=== PATIENT | female | born 1960 | race African-American/Black ===

== ENCOUNTER 2019-06-22 11:05 | Outpatient (CLI) | payer OTHER, SELFPAY ==
[2019-06-22 12:09] LABS: Alanine Aminotransferase 35 U/L (4-35); Alkaline Phosphatase 96 U/L (38-126); Aspartate Amino Transferase 38 U/L (14-36); Bilirubin,Total 0.3 mg/dL (0.2-1.3); Blood Urea Nitrogen 13 mg/dL (7-17); Calcium 8.9 mg/dL (8.4-10.2); Carbon Dioxide 33 mmol/L (22-30); Chloride 103 mmol/L (98-107); Cholesterol 144 mg/dL (0-200); Estimated Glomerular Filt Rate > 60; Glucose 110 mg/dL (65-105); HDL Direct 47 mg/dL; Sodium 143 mmol/L (137-145); Triglycerides 145 mg/dL (<150)
[2019-06-22 12:20] LABS: LDL Cholesterol Direct 72 mg/dL
[2019-06-22 12:55] LABS: Microalbumin Urine Random < 6.0 mg/L (0-16.7)
== END 2019-06-22 11:06 | disposition home or self-care (01) ==
PROVIDERS: PCP Family Medicine; Visit Provider Family Medicine
DX: Z86.39 Personal history of other endocrine, nutritional and metabolic disease (principal); I10 Essential (primary) hypertension
CPT/HCPCS: 36415; 80053; 80061; 82043

== ENCOUNTER 2019-06-25 08:46 | Outpatient (CLI) | payer OTHER, SELFPAY ==
[2019-06-25 09:37] LABS: Hemoglobin A1C 6.6 % (<5.7)
== END 2019-06-25 08:47 | disposition home or self-care (01) ==
PROVIDERS: PCP Family Medicine; Visit Provider Family Medicine
DX: Z86.39 Personal history of other endocrine, nutritional and metabolic disease (principal)
CPT/HCPCS: 36415; 83036

== ENCOUNTER 2019-10-02 07:36 | Outpatient (CLI) | payer OTHER, SELFPAY ==
[2019-10-02 08:25] LABS: Basophils Percent Auto 0.8 % (0.2-1.2); Eosinophils Absolute Auto 0.1 K/mm3 (0-0.3); Eosinophils Percent Auto 3.1 % (0-4.4); Hematocrit 37.1 % (37.0-47.0); Hemoglobin 11.6 g/dL (12.0-15.0); Immature Granulocyte Absolute 0.02 K/mm3 (0.00-0.031); Immature Granulocyte Percent A 0.5 % (0-0.5); Lymphocytes Absolute Auto 1.31 K/mm3 (0.9-3.2); Lymphocytes Percent Auto 34.2 % (18.3-44.2); Mean Corpuscular HGB Conc 31.3 g/dl (32-36); Mean Corpuscular Hemoglobin 27.2 pg (26-34); Mean Corpuscular Volume 87.1 fl (80-100); Mean Platelet Volume 11.2 fl (7.4-10.4); Monocytes Absolute Auto 0.3 K/mm3 (0.1-0.6); Monocytes Percent Auto 8.1 % (2.6-8.5); Neutrophils Percent Auto 53.3 % (45.5-73.1); Platelet Count Result 206 k/mm3 (150-375); Red Blood Count 4.26 M/mm3 (4.2-5.4); Red Cell Distribution Width 13.4 % (11.5-14.5); White Blood Count 3.8 K/mm3 (4.5-10.0)
[2019-10-02 09:03] LABS: Iron 62 ug/dL (37-170)
[2019-10-02 09:12] LABS: Percent Iron Saturation 18 % (20-50)
== END 2019-10-02 07:37 | disposition home or self-care (01) ==
PROVIDERS: PCP Family Medicine; Visit Provider Nurse Practitioner
DX: D64.9 Anemia, unspecified (principal)
CPT/HCPCS: 36415; 82728; 83540; 83550; 85025

== ENCOUNTER 2019-11-19 06:57 | Outpatient (CLI) | payer OTHER, SELFPAY ==
[2019-11-19 07:12] LABS: Basophils Percent Auto 0.7 % (0.2-1.2); Eosinophils Absolute Auto 0.2 K/mm3 (0-0.3); Eosinophils Percent Auto 4.8 % (0-4.4); Hematocrit 38.1 % (37.0-47.0); Hemoglobin 11.8 g/dL (12.0-15.0); Immature Granulocyte Absolute 0.02 K/mm3 (0.00-0.031); Immature Granulocyte Percent A 0.5 % (0-0.5); Lymphocytes Percent Auto 30.9 % (18.3-44.2); Mean Corpuscular Hemoglobin 27.3 pg (26-34); Mean Platelet Volume 11.2 fl (7.4-10.4); Monocytes Absolute Auto 0.4 K/mm3 (0.1-0.6); Monocytes Percent Auto 8.8 % (2.6-8.5); Neutrophils Absolute Auto 2.3 K/mm3 (1.3-6.7); Neutrophils Percent Auto 54.3 % (45.5-73.1); Platelet Count Result 202 k/mm3 (150-375); Red Blood Count 4.33 M/mm3 (4.2-5.4); Red Cell Distribution Width 13.8 % (11.5-14.5); White Blood Count 4.2 K/mm3 (4.5-10.0)
[2019-11-19 07:26] LABS: Alanine Aminotransferase 28 U/L (4-35); Albumin Level 3.3 g/dL (3.5-5.1); Alkaline Phosphatase 68 U/L (38-126); Anion Gap 2 mmol/L (8-16); Aspartate Amino Transferase 32 U/L (14-36); Bilirubin,Total < 0.1 mg/dL (0.2-1.3); Blood Urea Nitrogen 13 mg/dL (7-17); Calcium 8.8 mg/dL (8.4-10.2); Carbon Dioxide 31 mmol/L (22-30); Chloride 107 mmol/L (98-107); Cholesterol 128 mg/dL (0-200); Estimated Glomerular Filt Rate > 60; Glucose 113 mg/dL (65-105); HDL Direct 36 mg/dL; Potassium 3.9 mmol/L (3.4-5.0); Sodium 140 mmol/L (137-145); Triglycerides 51 mg/dL (<150)
[2019-11-19 07:37] LABS: LDL Cholesterol Direct 78 mg/dL
[2019-11-19 08:01] LABS: Hemoglobin A1C 6.2 % (<5.7)
== END 2019-11-19 06:58 | disposition home or self-care (01) ==
LOC: ANHLAB 07:00
PROVIDERS: PCP Family Medicine
DX: E11.22 Type 2 diabetes mellitus with diabetic chronic kidney disease (principal); I12.9 Hypertensive chronic kidney disease with stage 1 through stage 4 chronic kidney disease, or unspecified chronic kidney disease; Z86.39 Personal history of other endocrine, nutritional and metabolic disease; B35.1 Tinea unguium; E11.69 Type 2 diabetes mellitus with other specified complication; N18.9 Chronic kidney disease, unspecified
CPT/HCPCS: 36415; 80053; 80061; 83036; 85025

== ENCOUNTER 2020-03-04 08:32 | Outpatient (CLI) | payer OTHER, SELFPAY ==
[2020-03-04 09:09] LABS: Potassium 3.8 mmol/L (3.4-5.0)
[2020-03-04 09:17] LABS: Alanine Aminotransferase 21 U/L (4-35); Alkaline Phosphatase 85 U/L (38-126); Anion Gap 6 mmol/L (8-16); Aspartate Amino Transferase 31 U/L (14-36); Bilirubin,Total 0.3 mg/dL (0.2-1.3); Blood Urea Nitrogen 13 mg/dL (7-17); Calcium 9.6 mg/dL (8.4-10.2); Carbon Dioxide 33 mmol/L (22-30); Chloride 104 mmol/L (98-107); Cholesterol 141 mg/dL (0-200); Estimated Glomerular Filt Rate > 60; Glucose 157 mg/dL (65-105); HDL Direct 41 mg/dL; Sodium 143 mmol/L (137-145); Triglycerides 65 mg/dL (<150)
[2020-03-04 09:21] LABS: LDL Cholesterol Direct 74 mg/dL
[2020-03-04 09:37] LABS: Hemoglobin A1C 7.2 % (<5.7)
== END 2020-03-04 08:33 | disposition home or self-care (01) ==
PROVIDERS: PCP Family Medicine; Visit Provider Nurse Practitioner Family
DX: E11.9 Type 2 diabetes mellitus without complications (principal); E78.5 Hyperlipidemia, unspecified; I10 Essential (primary) hypertension
CPT/HCPCS: 36415; 80053; 80061; 83036

== ENCOUNTER → 2021-02-03 18:07 | Outpatient (CLI) | payer OTHER, SELFPAY ==
--- NOTE | ~2021-02-03 | DEXA_ITS ---
Bone Density Report Name: Elsy Hernandez Age: 60 Sex: Female Ethnicity: White Date of : 1960 Indication: postmenopausal; screening for osteoporosis; height loss; Referring Provider: Silvia Dunne Study: Bone densitometry was performed. Exam Date: February 03, 2021 Accession number: [id number] Bone Density: Region BMD T-score Z-score Classification AP Spine (L1-L4) 0.940 -1.0 0.4 Normal Femoral Neck (Left) 0.596 -2.3 -1.0 Osteopenia Total Hip (Left) 0.753 -1.6 -0.6 Osteopenia Femoral Neck (Right) 0.629 -2.0 -0.7 Osteopenia Total Hip (Right) 0.734 -1.7 -0.8 Osteopenia Total Hip Mean 0.744 -1.7 -0.7 Osteopenia World Health Organization criteria for BMD impression classify patients as: Normal (T-score at or above -1.0), Osteopenia (T-score between -1.0 and -2.5), or Osteoporosis (T-score at or below -2.5). 10-year Fracture Risk(1): Major Osteoporotic Fracture 10% Hip Fracture 1.5% Reported Risk Factors: [place] (), Neck BMD=0.596, BMI=26.7 (1) FRAX(R) Version 3.08. Fracture probability calculated for an untreated patient. Fracture probability may be lower if the patient has received treatment. Clinical Information Provided by Patient: Has used the following medications: Calcium, MTV Patient maximum height was 71.0 Menopause Age: 56 Drinks caffeinated beverages Onset of menses at age 16 Number of children 1 Impression: The patient has low bone mass, based on the Left Femoral Neck T-score. The patient has an estimated ten-year risk of hip fracture of 1.5% and an estimated ten-year risk of major fracture of 10%, based on the WHO FRAX algorithm. Discussion: BONE DENSITY IS LOW AT ONE OR MORE SKELETAL SITES. This patient's lowest T-score is low at one or more skeletal sites. It meets the World Health Organization's (WHO) criteria for ?low bone mass? (T-score between -1.0 and -2.5). The patient's 10-year risk of fracture as calculated by FRAX is less than the threshold where pharmacological therapy is recommended by the National Osteoporosis Foundation (NOF). However, all treatment decisions require clinical judgment and consideration of individual patient factors, including patient preferences, comorbidities, previous drug use, risk factors not captured in the FRAX model (e.g., frailty, falls, vitamin D deficiency, increased bone turnover, interval significant decline in bone density) and possible under or overestimation of fracture risk by FRAX. The patient should follow a healthful lifestyle (good nutrition with adequate calcium and vitamin D, and appropriate weight-bearing exercise). Follow-Up: Consider repeating this study in 2 to 3 years to reassess this patient's status, or sooner if there is some new clinical indication. Reported by: IVIS on 02/03/2021 7:02:00 PM. __
--- NOTE | ~2021-02-03 | MM_ITS ---
EXAMINATION: MM screening nicki BI w wily HISTORY: Screening TECHNIQUE: Craniocaudal and mediolateral oblique 3-D tomosynthesis images were obtained and synthetic 2-D images were generated. CAD analysis was submitted and interpreted. COMPARISON: 06/05/2017 BREAST PARENCHYMAL COMPOSITION: There are scattered areas of fibroglandular density. FINDINGS: There is no evidence of suspicious mass, calcification, or architectural distortion to sugg est malignancy in either breast. There has been no suspicious interval change. IMPRESSION: 1. No mammographic evidence of malignancy. 2. Recommend routine screening mammography in one year. BI-RADS Category 1: Negative Reviewed, dictated and finalized at location A.
== END ==
PROVIDERS: PCP Family Medicine; Visit Provider Family Medicine
DX: Z12.31 Encounter for screening mammogram for malignant neoplasm of breast (principal); Z78.0 Asymptomatic menopausal state; M85.89 Other specified disorders of bone density and structure, multiple sites
CPT/HCPCS: 77063; 77067; 77080

== ENCOUNTER 2021-12-27 10:10 | Outpatient (CLI) | payer OTHER, SELFPAY ==
[2021-12-27 20:05] LABS: Basophils Percent Auto 0.6 % (0.2-1.2); Eosinophils Absolute Auto 0.2 K/mm3 (0-0.3); Eosinophils Percent Auto 4.4 % (0-4.4); Hematocrit 39.7 % (37.0-47.0); Hemoglobin 11.8 g/dL (12.0-15.0); Immature Granulocyte Absolute 0.01 K/mm3 (0.00-0.031); Immature Granulocyte Percent A 0.2 % (0-0.5); Lymphocytes Absolute Auto 1.52 K/mm3 (0.9-3.2); Lymphocytes Percent Auto 28.1 % (18.3-44.2); Mean Corpuscular HGB Conc 29.7 g/dl (32-36); Mean Corpuscular Hemoglobin 26.5 pg (26-34); Mean Platelet Volume 11.8 fl (7.4-10.4); Monocytes Absolute Auto 0.3 K/mm3 (0.1-0.6); Monocytes Percent Auto 6.3 % (2.6-8.5); Neutrophils Absolute Auto 3.3 K/mm3 (1.3-6.7); Neutrophils Percent Auto 60.4 % (45.5-73.1); Platelet Count Result 255 k/mm3 (150-375); Red Blood Count 4.46 M/mm3 (4.2-5.4); Red Cell Distribution Width 13.7 % (11.5-14.5); White Blood Count 5.4 K/mm3 (4.5-10.0)
[2021-12-27 20:20] LABS: Alanine Aminotransferase 27 U/L (6-35); Albumin Level 4.1 g/dL (3.5-5.1); Alkaline Phosphatase 99 U/L (38-126); Anion Gap 10 mmol/L (8-16); Aspartate Amino Transferase 79 U/L (14-36); Bilirubin,Total 0.5 mg/dL (0.2-1.3); Blood Urea Nitrogen 13 mg/dL (7-17); Calcium 9.9 mg/dL (8.4-10.2); Carbon Dioxide 30 mmol/L (22-30); Chloride 102 mmol/L (98-107); Cholesterol 150 mg/dL (0-200); Estimated Glomerular Filt Rate > 60; Glucose 156 mg/dL (65-110); HDL Direct 40 mg/dL; Sodium 142 mmol/L (137-145); Triglycerides 86 mg/dL (<150)
[2021-12-27 20:30] LABS: LDL Cholesterol Direct 84 mg/dL
[2021-12-27 20:36] LABS: Platelet Estimate Adequate (Adequate)
[2021-12-27 20:37] LABS: Hypochromasia 1+ (NORMAL)
[2021-12-27 20:44] LABS: Vitamin D 25 Hydroxy 46.7 ng/mL
[2021-12-27 20:45] LABS: Hemoglobin A1C 8.4 % (<5.7)
[2021-12-27 23:18] LABS: Creatinine Urine 84.9 mg/dL
[2021-12-28 01:03] LABS: MALB Creatinine Ratio < 7.1 mg/g (0-30); Microalbumin Urine Random < 6.0 mg/L (0-16.7)
== END 2021-12-27 10:11 | disposition home or self-care (01) ==
LOC: ANHGOSHLAB 10:14
PROVIDERS: PCP Family Medicine; Visit Provider Family Medicine
DX: E53.8 Deficiency of other specified B group vitamins (principal); E78.5 Hyperlipidemia, unspecified; I10 Essential (primary) hypertension; Z51.81 Encounter for therapeutic drug level monitoring; Z79.899 Other long term (current) drug therapy; E55.9 Vitamin D deficiency, unspecified; E11.9 Type 2 diabetes mellitus without complications; Z00.00 Encounter for general adult medical examination without abnormal findings
CPT/HCPCS: 36415; 80053; 80061; 82043; 82306; 82607; 83036; 84443; 85025

== ENCOUNTER → 2022-05-01 13:56 | Outpatient (CLI) | payer OTHER, SELFPAY ==
--- NOTE | ~2022-05-01 | MM_ITS ---
EXAMINATION: MM screening nicki BI w wily HISTORY: Screening mammogram TECHNIQUE: Craniocaudal and mediolateral oblique 3-D tomosynthesis images were obtained and synthetic 2-D images were generated. CAD analysis was submitted and interpreted. COMPARISON: 02/03/2021, 06/05/2017 bilateral screening mammogram examinations BREAST PARENCHYMAL COMPOSITION: The breasts are almost entirely fatty. FINDINGS: There is no evidence of suspicious mass, calcification, or architectural distortion to sugg est malignancy in either breast. There has been no suspicious interval change. IMPRESSION: 1. No mammographic evidence of malignancy. 2. Recommend routine screening mammography in one year. BI-RADS Category 1: Negative Reviewed, dictated and finalized at location A. [employer]
== END ==
PROVIDERS: PCP Family Medicine; Visit Provider Family Medicine
DX: Z12.31 Encounter for screening mammogram for malignant neoplasm of breast (principal)
CPT/HCPCS: 77063; 77067

== ENCOUNTER 2022-07-02 09:51 | Outpatient (CLI) | payer OTHER, SELFPAY ==
[2022-07-02 19:29] LABS: Alanine Aminotransferase 34 U/L (6-35); Albumin Level 4.4 g/dL (3.5-5.1); Alkaline Phosphatase 101 U/L (38-126); Anion Gap 9 mmol/L (8-16); Aspartate Amino Transferase 38 U/L (14-36); Bilirubin,Total 0.5 mg/dL (0.2-1.3); Blood Urea Nitrogen 14 mg/dL (7-17); Calcium 9.7 mg/dL (8.4-10.2); Carbon Dioxide 31 mmol/L (22-30); Chloride 101 mmol/L (98-107); Cholesterol 161 mg/dL (0-200); Estimated Glomerular Filt Rate > 60; Glucose 136 mg/dL (65-110); HDL Direct 37 mg/dL; Potassium 3.8 mmol/L (3.4-5.0); Sodium 141 mmol/L (137-145); Triglycerides 88 mg/dL (<150)
[2022-07-02 19:38] LABS: LDL Cholesterol Direct 93 mg/dL
[2022-07-02 19:46] LABS: Hemoglobin A1C 7.9 % (<5.7)
[2022-07-02 21:05] LABS: Basophils Absolute Auto 0.1 K/mm3 (0.0-0.1); Basophils Percent Auto 1.1 % (0.2-1.2); Eosinophils Absolute Auto 0.2 K/mm3 (0-0.3); Eosinophils Percent Auto 2.8 % (0-4.4); Hematocrit 41.9 % (37.0-47.0); Hemoglobin 12.9 g/dL (12.0-15.0); Immature Granulocyte Absolute 0.01 K/mm3 (0.00-0.031); Immature Granulocyte Percent A 0.2 % (0-0.5); Lymphocytes Absolute Auto 1.66 K/mm3 (0.9-3.2); Lymphocytes Percent Auto 30.9 % (18.3-44.2); Mean Corpuscular HGB Conc 30.8 g/dl (32-36); Mean Corpuscular Hemoglobin 27.3 pg (26-34); Mean Corpuscular Volume 88.6 fl (80-100); Mean Platelet Volume 11.7 fl (7.4-10.4); Monocytes Absolute Auto 0.3 K/mm3 (0.1-0.6); Monocytes Percent Auto 6.1 % (2.6-8.5); Neutrophils Absolute Auto 3.2 K/mm3 (1.3-6.7); Neutrophils Percent Auto 58.9 % (45.5-73.1); Platelet Count Result 288 k/mm3 (150-375); Red Blood Count 4.73 M/mm3 (4.2-5.4); Red Cell Distribution Width 13.4 % (11.5-14.5); White Blood Count 5.4 K/mm3 (4.5-10.0)
== END 2022-07-02 09:52 | disposition home or self-care (01) ==
LOC: ANHGOSHLAB 09:52
PROVIDERS: PCP Family Medicine; Visit Provider Nurse Practitioner Family
DX: I10 Essential (primary) hypertension (principal); E11.9 Type 2 diabetes mellitus without complications; E78.5 Hyperlipidemia, unspecified; L65.9 Nonscarring hair loss, unspecified
CPT/HCPCS: 36415; 80053; 80061; 83036; 84443; 85025

== ENCOUNTER 2023-01-07 10:29 | Outpatient (CLI) | payer OTHER, SELFPAY ==
[2023-01-07 13:12] LABS: Basophils Absolute Auto 0.1 K/mm3 (0.0-0.1); Eosinophils Absolute Auto 0.2 K/mm3 (0-0.3); Eosinophils Percent Auto 4.8 % (0-4.4); Hematocrit 39.7 % (37.0-47.0); Hemoglobin 12.1 g/dL (12.0-15.0); Immature Granulocyte Absolute 0.01 K/mm3 (0.00-0.031); Immature Granulocyte Percent A 0.2 % (0-0.5); Lymphocytes Absolute Auto 1.45 K/mm3 (0.9-3.2); Mean Corpuscular HGB Conc 30.5 g/dl (32-36); Mean Corpuscular Hemoglobin 27.1 pg (26-34); Mean Platelet Volume 11.6 fl (7.4-10.4); Monocytes Absolute Auto 0.3 K/mm3 (0.1-0.6); Monocytes Percent Auto 6.2 % (2.6-8.5); Neutrophils Absolute Auto 2.8 K/mm3 (1.3-6.7); Neutrophils Percent Auto 57.8 % (45.5-73.1); Platelet Count Result 246 k/mm3 (150-375); Red Blood Count 4.46 M/mm3 (4.2-5.4); White Blood Count 4.8 K/mm3 (4.5-10.0)
[2023-01-07 13:29] LABS: Creatinine Urine 66.7 mg/dL
[2023-01-07 13:41] LABS: Alanine Aminotransferase 30 U/L (6-35); Alkaline Phosphatase 101 U/L (38-126); Anion Gap 5 mmol/L (8-16); Aspartate Amino Transferase 47 U/L (14-36); Bilirubin,Total 0.6 mg/dL (0.2-1.3); Blood Urea Nitrogen 10 mg/dL (7-17); Calcium 9.5 mg/dL (8.4-10.2); Carbon Dioxide 32 mmol/L (22-30); Chloride 103 mmol/L (98-107); Cholesterol 156 mg/dL (0-200); Estimated Glomerular Filt Rate > 60; Glucose 96 mg/dL (65-110); HDL Direct 41 mg/dL; Potassium 3.7 mmol/L (3.4-5.0); Sodium 140 mmol/L (137-145); Triglycerides 66 mg/dL (<150)
[2023-01-07 13:55] LABS: LDL Cholesterol Direct 86 mg/dL
[2023-01-07 14:16] LABS: Thyroid Stimulating Hormone Reflex 0.858 uIU/mL (0.465-4.68)
[2023-01-07 14:36] LABS: MALB Creatinine Ratio < 9.0 mg/g (0-30); Microalbumin Urine Random < 6.0 mg/L (0-16.7)
[2023-01-07 15:18] LABS: Hemoglobin A1C 8.2 % (<5.7)
== END 2023-01-07 10:30 | disposition home or self-care (01) ==
PROVIDERS: PCP Family Medicine; Visit Provider Family Medicine
DX: Z00.00 Encounter for general adult medical examination without abnormal findings (principal); I10 Essential (primary) hypertension; E78.5 Hyperlipidemia, unspecified; E55.9 Vitamin D deficiency, unspecified; E11.8 Type 2 diabetes mellitus with unspecified complications; E53.8 Deficiency of other specified B group vitamins
CPT/HCPCS: 36415; 80053; 80061; 82043; 82306; 82607; 83036; 84443; 85025

== ENCOUNTER 2023-07-22 12:37 | Outpatient (CLI) | payer OTHER, SELFPAY ==
--- NOTE | ~2023-07-22 | DEXA_ITS ---
Bone Density Report Name: GRACIELA NICOLAS Age: 62 Sex: Female Ethnicity: White Date of : 1960 Indication: osteopenia; postmenopausal Referring Provider: NUVIA SALAS Study: Bone densitometry was performed. Exam Date: July 22, 2023 Accession number: [id number] Bone Density: Region BMD T-score Z-score Classification AP Spine (L1-L4) 0.948 -0.9 0.6 Normal Femoral Neck (Left) 0.600 -2.2 -0.9 Osteopenia Total Hip (Left) 0.739 -1.7 -0.6 Osteopenia Femoral Neck (Right) 0.640 -1.9 -0.5 Osteopenia Total Hip (Right) 0.713 -1.9 -0.8 Osteopenia Total Hip Mean 0.726 -1.8 -0.7 Osteopenia World Health Organization criteria for BMD impression classify patients as: Normal (T-score at or above -1.0), Osteopenia (T-score between -1.0 and -2.5), or Osteoporosis (T-score at or below -2.5). 10-year Fracture Risk(1): Major Osteoporotic Fracture 11% Hip Fracture 1.6% Reported Risk Factors: [place] (), Neck BMD=0.600, BMI=25.6 (1) FRAX(R) Version 3.08. Fracture probability calculated for an untreated patient. Fracture probability may be lower if the patient has received treatment. Previous Exams: Region Exam Age BMD T-score BMD Change BMD Change Date g/cm2 vs Baseline vs Previous AP Spine(L1-L4) 07/22/2023 62 0.948 -0.9 0.008 0.033 07/22/2023 62 0.915 -1.2 -0.025 -0.025 02/03/2021 60 0.940 -1.0 Total Hip(Left) 07/22/2023 62 0.739 -1.7 -0.014 -0.014 02/03/2021 60 0.753 -1.6 Total Hip(Right) 07/22/2023 62 0.713 -1.9 -0.021 -0.021 02/03/2021 60 0.734 -1.7 *Denotes significance at 95% confidence level, LSC for AP Spine = 0.022 g/cm2, LSC for Total Hip = 0.027 g/cm2 Clinical Information Provided by Patient: Has used the following medications: Vitamin D, MTV Patient maximum height was 71.0 Menopause Age: 56 Drinks caffeinated beverages Onset of menses at age 16 Number of children 1 Impression: The patient has low bone mass, based on the Left Femoral Neck T-score. The patient has an estimated ten-year risk of hip fracture of 1.6% and an estimated ten-year risk of major fracture of 11%, based on the WHO FRAX algorithm. No significant bone loss was observed. Discussion: BONE DENSITY IS LOW AT ONE OR MORE SKELETAL SITES. This patient's lowest T-score is low at one or more skeletal sites. It meets the World Health Organization's (WHO) criteria f
--- NOTE | ~2023-07-22 | MM_ITS ---
EXAMINATION: MM screening nicki BI w wily HISTORY: Screening TECHNIQUE: Craniocaudal and mediolateral oblique 3-D tomosynthesis images were obtained and synthetic 2-D images were generated. CAD analysis was submitted and interpreted. COMPARISON: Comparison to multiple prior studies sequentially, with oldest reviewed study dated 06/05. BREAST PARENCHYMAL COMPOSITION: There are scattered areas of fibroglandular density. FINDINGS: There is no evidence of suspicious mass, calcification, or architectural distortion to sugg est malignancy in either breast. There has been no suspicious interval change. IMPRESSION: 1. No mammographic evidence of malignancy. 2. Recommend routine screening mammography in one year. BI-RADS Category 1: Negative Reviewed, dictated and finalized at location B.
== END 2023-07-22 12:38 ==
LOC: MICIMG 12:37
PROVIDERS: PCP Family Medicine; Visit Provider Internal Medicine Endocrinology, Diabetes & Metabolism
DX: Z12.31 Encounter for screening mammogram for malignant neoplasm of breast (principal); Z78.0 Asymptomatic menopausal state; M85.89 Other specified disorders of bone density and structure, multiple sites
CPT/HCPCS: 77063; 77067; 77080

== ENCOUNTER 2024-01-14 09:52 | Outpatient (CLI) | payer OTHER, SELFPAY ==
[2024-01-14 14:32] LABS: Eosinophils Absolute Auto 0.2 K/mm3 (0-0.3); Eosinophils Percent Auto 5.5 % (0-4.4); Hematocrit 42.6 % (37.0-47.0); Hemoglobin 12.7 g/dL (12.0-15.0); Immature Granulocyte Absolute 0.01 K/mm3 (0.00-0.031); Immature Granulocyte Percent A 0.2 % (0-0.5); Lymphocytes Absolute Auto 1.04 K/mm3 (0.9-3.2); Lymphocytes Percent Auto 24.9 % (18.3-44.2); Mean Corpuscular HGB Conc 29.8 g/dl (32-36); Mean Corpuscular Hemoglobin 26.1 pg (26-34); Mean Corpuscular Volume 87.7 fl (80-100); Mean Platelet Volume 12.1 fl (7.4-10.4); Monocytes Absolute Auto 0.4 K/mm3 (0.1-0.6); Monocytes Percent Auto 8.9 % (2.6-8.5); Neutrophils Absolute Auto 2.5 K/mm3 (1.3-6.7); Neutrophils Percent Auto 59.5 % (45.5-73.1); Platelet Count Result 229 k/mm3 (150-375); Red Blood Count 4.86 M/mm3 (4.2-5.4); Red Cell Distribution Width 13.9 % (11.5-14.5); White Blood Count 4.2 K/mm3 (4.5-10.0)
[2024-01-14 14:41] LABS: Creatinine Urine 66.6 mg/dL
[2024-01-14 14:43] LABS: MALB Creatinine Ratio < 9.0 mg/g (0-30); Microalbumin Urine Random < 6.0 mg/L (0-16.7)
[2024-01-14 14:56] LABS: Alanine Aminotransferase 35 U/L (6-35); Albumin Level 4.4 g/dL (3.5-5.1); Alkaline Phosphatase 81 U/L (38-126); Anion Gap 8 mmol/L (4-12); Aspartate Amino Transferase 58 U/L (14-36); Bilirubin,Total 0.5 mg/dL (0.2-1.3); Blood Urea Nitrogen 19 mg/dL (7-17); Calcium 9.8 mg/dL (8.4-10.2); Carbon Dioxide 30 mmol/L (22-30); Chloride 103 mmol/L (98-107); Cholesterol 157 mg/dL (0-200); Estimated Glomerular Filt Rate > 60; Glucose 75 mg/dL (65-110); HDL Direct 43 mg/dL; Potassium 3.8 mmol/L (3.4-5.0); Sodium 141 mmol/L (137-145); Triglycerides 60 mg/dL (<150)
[2024-01-14 15:07] LABS: LDL Cholesterol Direct 78 mg/dL
[2024-01-14 15:11] LABS: Hypochromasia 1+; Platelet Estimate Adequate (Adequate); Schistocytes None Seen
[2024-01-14 16:37] LABS: Vitamin D 25 Hydroxy 47.4 ng/mL
== END 2024-01-14 09:53 | disposition home or self-care (01) ==
PROVIDERS: PCP Family Medicine; Visit Provider Family Medicine
DX: Z00.00 Encounter for general adult medical examination without abnormal findings (principal); E11.65 Type 2 diabetes mellitus with hyperglycemia; E78.5 Hyperlipidemia, unspecified; M85.80 Other specified disorders of bone density and structure, unspecified site; R79.89 Other specified abnormal findings of blood chemistry; E11.8 Type 2 diabetes mellitus with unspecified complications; Z79.899 Other long term (current) drug therapy
CPT/HCPCS: 36415; 80053; 80061; 82043; 82306; 82607; 84443; 85025

== ENCOUNTER 2024-02-24 00:02 | Day surgery (SDC) | payer OTHER, SELFPAY ==
[2024-02-13 08:39] VITALS: BMI 26.1
[2024-02-24 09:16] VITALS: BP 148/72; PULSE 63; RESP 18; TEMP 36.4; O2SAT 100
[2024-02-24] MEDS: LACTATED RINGERS 1,000 ML 150 ML IV CONT (09:27)
[2024-02-24 09:28] LABS: Glucose Point of Care 120 mg/dl (65-105)
--- NOTE | 2024-02-24 09:31 | WPDANESEPPF ---
Anes - Initial Pre Proc Eval Procedure: Operation Date: 02/24/24 10:30 Proposed Procedures p Colonoscopy - Song Beard MD Date/Time: 02/24/24 09:31 Surgeon: Song Beard MD Pre Op Diagnosis: family hx of cancer, family hx of colon polyps Patient Data Age: 63 Gender: F Height: 1.8 m Weight: 83 kg Last Vital Signs Temp 36.4 C 02/24/24 09:16 Pulse 63 02/24/24 09:16 Resp 18 02/24/24 09:16 BP 148/72 H 02/24/24 09:16 Pulse Ox 100 02/24/24 09:16 O2 Del Method Room Air 02/24/24 09:16 Allergies Allergy/AdvReac Type Severity Reaction Status Date / Time latex Allergy Intermediate HIVES Verified 02/24/24 09:14 Home Medications Medication Instructions Recorded Confirmed Type blood-glucose meter (Blood Glucose #1 ea 03/11/19 02/24/24 Rx Monitoring kit) ibuprofen 800 mg tablet 800 mg PO DAILY PRN pain #30 tabs 05/20/19 02/24/24 Rx aspirin 81 mg chewable tablet 81 mg PO DAILY 10/06/19 02/24/24 History (Jocelyn Chewable Low Dose Aspirin) cetirizine 10 mg capsule (Wal-Zyr 10 mg PO DAILY PRN ALLERGIES 12/27/21 02/24/24 History (cetirizine)) cranberry 400 mg capsule 400 mg PO DAILY 12/27/21 02/24/24 History fluticasone propionate 50 2 spray intranasal DAILY PRN 11/05/22 02/24/24 Rx mcg/actuation nasal allergy symptoms #9 mL spray,suspension (Flonase Allergy Relief) lancets 23 gauge (Comfort EZ #100 ea 01/21/23 02/24/24 Rx Lancets) blood sugar diagnostic (OneTouch See Rx Instructions .Route 07/11/23 02/24/24 Rx Verio test strips) .COMPLEX #200 strips glucose 4 gram chewable tablet 16 g PO Q15M PRN hypoglycemia #90 07/11/23 02/24/24 Rx (Dex4 Glucose) tabs lancets 33 gauge (OneTouch Delica #200 ea 07/11/23 02/24/24 Rx Plus Lancet) azelastine 137 mcg (0.1 %) nasal 1 spray intranasal Q12H #30 mL 07/22/23 02/24/24 Rx spray efinaconazole 10 % topical 1 applic topical QHS #4 mL 08/23/23 02/24/24 Rx solution with applicator (Jublia) dulaglutide 3 mg/0.5 mL 3 mg (0.5 mL) subcut WEEKLY 90 12/18/23 02/24/24 Rx subcutaneous pen injector days #6.5 mL atorvastatin 10 mg tablet 10 mg PO QHS #90 tabs 01/06/24 02/24/24 Rx calcium ER 600 mg (as carb,cit)-D3 1 tablet PO BID 3 months #180 tabs 01/08/24 02/24/24 Rx 12.5 mcg (500 unit) tablet, ext.rel (Citracal-D3 Slow Release) glipizide 10 mg tablet, extended 10 mg PO BID 3 months #180 tabs 01/08/24 02/24/24 Rx release 24 hr losartan 50 mg tablet 50 mg PO DAILY 01/14/24 02/24/24 History Laboratory Tests 02/24/24 09:24 POC Capillary Glucose 120 H mg/dl (65-105) Patient hx anesthesia problems: none Family hx anesthesia problems: none Results Review: All pre-operative results and documents have been reviewed as part of the pre-operative evaluation. FOR[facility]LY [facility] Past Medical History Medical History Environmental allergies Essential (primary) hypertension (~11/2018) External hemorrhoid Family history of colon cancer in mother Family hx of colon cancer Mother and 1st cousin Hyperlipidemia LDL goal <100 Osteopenia Surgical History Surgical History S/P tendon repair (~1979) left wrist Family History Family History Mother Diabetes mellitus, Onset Age: 65 Family history of obesity Hypertension, Onset Age: 65 Carcinoma of colon, Onset Age: 64 @ 65 y/o Grandparent Diabetes mellitus Sibling Diabetes mellitus Family history of cardiovascular disease Cerebrovascular accident Family history of chronic obstructive pulmonary disease Family history of lupus erythematosus Family history of obesity Acute myocardial infarction Hypertension Other Heart disease Hypertension Family history of obesity Diabetes mellitus Cerebrovascular accident Social History Social History Smoking status: Never smoker Alcohol intake: never Substance use: never Substance use type: does not use Lack of Transportation: No Lack of Food: Never True Current Housing: I Have Housing Concerned About Future Housing: No Difficulty Paying Gas/Electric Bills: No Difficulty Paying for Meds: No Currently Unemployed: No Education: Associate Degree Difficulty w/ Childcare or Family Care: No Living arrangements: alone Occupation/Education: occupation Gender identity (if verbalized by the patient): Female Sexual Orientation (if Verbalized by the Patient): Straight or Heterosexual Spiritual care concerns: No Agree to blood products: Yes Anes - Eval Final PreProcedure Day of Procedure 02/24/24 09:31 Patient weight: overweight Heart: regular rate and rhythm Lungs: clear to auscultation Airway: Mallampati scale class II Neurological: alert and oriented Last oral intake: >/= 8 hours ASA classification: III Emergent: no Anesthetic plan: proceed Anesthesia type and monitoring: general GIVS and standard monitoring Results Review: All pre-operative results and documents have been reviewed as part of the pre-operative evaluation. Informed Consent: The patient's anesthetic plan and its attendant risks and benefits were discussed with the patient/family/POA. Questions were solicited and answers provided to the satisfaction of the patient/family/POA.
--- NOTE | 2024-02-24 10:18 | PM.IMHP ---
H&P: HPI History of Present Illness Date/Time: 02/24/24 10:18 Chief Complaint: family history of colorectal cancer. Narrative: This patient has family history of colorectal cancer. Her mother of colorectal cancer. Her last colonoscopy about 5 years ago. Review of Systems Review of Systems: All systems reviewed & are unremarkable except as noted in HPI and below PMFSH Past Medical History Medical History (Updated 02/24/24 @ 10:20 by Song Beard MD) Environmental allergies Essential (primary) hypertension (~11/2018) External hemorrhoid Family history of colon cancer in mother Family hx of colon cancer Mother and 1st cousin Hyperlipidemia LDL goal <100 Osteopenia Surgical History Surgical History S/P tendon repair (~1979) left wrist Family History Family History Mother Diabetes mellitus, Onset Age: 65 Family history of obesity Hypertension, Onset Age: 65 Carcinoma of colon, Onset Age: 64 @ 65 y/o Grandparent Diabetes mellitus Sibling Diabetes mellitus Family history of cardiovascular disease Cerebrovascular accident Family history of chronic obstructive pulmonary disease Family history of lupus erythematosus Family history of obesity Acute myocardial infarction Hypertension Other Heart disease Hypertension Family history of obesity Diabetes mellitus Cerebrovascular accident Social History Social History Smoking status: Never smoker Alcohol intake: never Substance use: never Substance use type: does not use Lack of Transportation: No Lack of Food: Never True Current Housing: I Have Housing Concerned About Future Housing: No Difficulty Paying Gas/Electric Bills: No Difficulty Paying for Meds: No Currently Unemployed: No Education: Associate Degree Difficulty w/ Childcare or Family Care: No Living arrangements: alone Occupation/Education: occupation Gender identity (if verbalized by the patient): Female Sexual Orientation (if Verbalized by the Patient): Straight or Heterosexual Spiritual care concerns: No Agree to blood products: Yes Meds Home Medications and Allergies Home Medications Medication Instructions Recorded Confirmed Type blood-glucose meter (Blood Glucose #1 ea 03/11/19 02/24/24 Rx Monitoring kit) ibuprofen 800 mg tablet 800 mg PO DAILY PRN pain #30 tabs 05/20/19 02/24/24 Rx aspirin 81 mg chewable tablet 81 mg PO DAILY 10/06/19 02/24/24 History (Jocelyn Chewable Low Dose Aspirin) cetirizine 10 mg capsule (Wal-Zyr 10 mg PO DAILY PRN ALLERGIES 12/27/21 02/24/24 History (cetirizine)) cranberry 400 mg capsule 400 mg PO DAILY 12/27/21 02/24/24 History fluticasone propionate 50 2 spray intranasal DAILY PRN 11/05/22 02/24/24 Rx mcg/actuation nasal allergy symptoms #9 mL spray,suspension (Flonase Allergy Relief) lancets 23 gauge (Comfort EZ #100 ea 01/21/23 02/24/24 Rx Lancets) blood sugar diagnostic (OneTouch See Rx Instructions .Route 07/11/23 02/24/24 Rx Verio test strips) .COMPLEX #200 strips glucose 4 gram chewable tablet 16 g PO Q15M PRN hypoglycemia #90 07/11/23 02/24/24 Rx (Dex4 Glucose) tabs lancets 33 gauge (OneTouch Delica #200 ea 07/11/23 02/24/24 Rx Plus Lancet) azelastine 137 mcg (0.1 %) nasal 1 spray intranasal Q12H #30 mL 07/22/23 02/24/24 Rx spray efinaconazole 10 % topical 1 applic topical QHS #4 mL 08/23/23 02/24/24 Rx solution with applicator (Jublia) dulaglutide 3 mg/0.5 mL 3 mg (0.5 mL) subcut WEEKLY 90 12/18/23 02/24/24 Rx subcutaneous pen injector days #6.5 mL atorvastatin 10 mg tablet 10 mg PO QHS #90 tabs 01/06/24 02/24/24 Rx calcium ER 600 mg (as carb,cit)-D3 1 tablet PO BID 3 months #180 tabs 01/08/24 02/24/24 Rx 12.5 mcg (500 unit) tablet, ext.rel (Citracal-D3 Slow Release) glipizide 10 mg tablet, extended 10 mg PO BID 3 months #180 tabs 01/08/24 02/24/24 Rx release 24 hr losartan 50 mg tablet 50 mg PO DAILY 01/14/24 02/24/24 History Allergies Allergy/AdvReac Type Severity Reaction Status Date / Time latex Allergy Intermediate HIVES Verified 02/24/24 09:14 Vital Signs Vital Signs - 24 hr 02/24/24 09:16 Temperature 97.6 F Pulse Rate 63 Respiratory Rate 18 Blood Pressure 148/72 H Pulse Oximetry 100 Oxygen Delivery Room Air Exam Const: General: cooperative and healthy appearing Resp: Effort & Inspection: normal respiratory effort and able to speak in complete sentences Auscultation: clear to auscultation bilaterally Cardio: Rate: regular rate Rhythm: regular rhythm GI: Inspection: normal to inspection GI Palp: No No hepatosplenomegaly present Auscultation: normal bowel sounds Rectal Exam: deferred Skin: General skin exam: normal color Psych: Appearance: grossly normal Mental Status: mental status grossly normal Assessment and Plan Assessment and plan (1) Family hx of colon cancer: Code(s): Z80.0 - Family history of malignant neoplasm of digestive organs Status: Acute Assessment and Plan: The patient is deemed a good candidate for the procedure. Consent signed. Will proceed.
[2024-02-24 10:55] VITALS: BP 108/70; PULSE 60; RESP 18; O2SAT 100
[2024-02-24 11:05] VITALS: BP 114/70; PULSE 60; RESP 20; O2SAT 100
[2024-02-24 11:15] VITALS: BP 161/84; PULSE 55; RESP 16; O2SAT 100
[2024-02-24 11:18] LABS: Glucose Point of Care 99 mg/dl (65-105)
== END 2024-02-24 11:30 | disposition home or self-care (01) ==
PROVIDERS: PCP Family Medicine; Visit Provider Internal Medicine Gastroenterology
PROC: 0DJD8ZZ Inspection of Lower Intestinal Tract, Via Natural or Artificial Opening Endoscopic (ICD-10-PCS; CPT 45378; principal; 2024-02-24 10:30)
DX: Z12.11 Encounter for screening for malignant neoplasm of colon (principal); D12.5 Benign neoplasm of sigmoid colon; D12.0 Benign neoplasm of cecum; K64.1 Second degree hemorrhoids; I10 Essential (primary) hypertension; E78.5 Hyperlipidemia, unspecified; M85.88 Other specified disorders of bone density and structure, other site; Z79.1 Long term (current) use of non-steroidal anti-inflammatories (NSAID); Z79.82 Long term (current) use of aspirin; Z79.85 Long-term (current) use of injectable non-insulin antidiabetic drugs; Z79.84 Long term (current) use of oral hypoglycemic drugs; Z98.890 Other specified postprocedural states; Z80.0 Family history of malignant neoplasm of digestive organs; Z82.49 Family history of ischemic heart disease and other diseases of the circulatory system
CPT/HCPCS: 45385; 82948; 88305; J2704; J7120

== ENCOUNTER 2024-07-16 10:20 | Outpatient (CLI) | payer OTHER, SELFPAY ==
--- OUTSIDE RECORDS SUMMARY | 2024-07-16 11:04 | XMS_ITS | Continuity of Care Document ---
Author Organization [facility] Address [address] [place] [address] Phone Care Team Providers Care Dairy Department Manager Name Role Phone Unavailable Unavailable Unavailable Allergies, Adverse Reactions, Alerts Substance Reaction Status Criticality No Known Allergies Active No Inform ation Medications Medication Instructions Dosage Effective Dates (start - stop) Status Comments Jublia 10 % topical solution with applicator APPLY 1 DROP BY TOPICAL ROUTE EVERY DAY TO AFFECTED TOENAIL(S) FOR 48 WEEKS. - Active Vitamin D2 50,000 unit capsule take 1 capsule by oral route every week for 10 weeks. - Active Please remind pt this is a once a week medication. ibuprofen 800 mg tablet take 1 tablet by oral route 3 times every day with food 800 MG - Active Procedures Procedure Date OFFICE/OUTPATIENT VISIT, EST OFFICE/OUTPATIENT VISIT, EST OFFICE/OUTPATIENT VISIT, EST OFFICE/OUTPATIENT VISIT, EST OFFICE/OUTPATIENT VISIT, EST OFFICE/OUTPATIENT VISIT, EST Infectious Agent Detection b y Immunoassay W/ Dir Optical Obs; Strep, Group A Infectious Agent Detection b y Immunoassay W/ Dir Optical Obs; Strep, Group A OFFICE/OUTPATIENT VISIT, NEW Advance Directives Directive Yes / No Effective Date File Name No Information Encounters Encounter Description Practice Location Reason(s) For Visit Diagnoses Date Provider Providers Copied on Encounter [facility], [address], [place], [place], [id number], [place] tel:[phone] [facility] [address] [facility] No Information 8 No Information [facility], [address], [place], [place], [id number], [place] tel:[phone] [facility] [address] [facility] No Information 7 No Information OFFICE/OUTPA TIENT VISIT, [facility], [address], [place], [place], [id number], [place] tel:[phone] [facility] [address] [facility] follow up on lab test(s) (chief complaint)mus culoskeletal pain (chief complaint) Acute pain of right kneeElevated blood pressure readingHypoka lemiaOnychomy cosisBalance problemsBlood glucose elevated 7 No Information OFFICE/OUTPA TIENT VISIT, [facility], [address], [place], [place], [id number], [place] tel:[phone] [facility] [address] [facility] ER Follow Up (chief complaint) Acute pain of right kneeHypokalem iaElevated blood pressure reading 7 No Information OFFICE/OUTPA TIENT VISIT, [facility], [address], [place], [place], [address], [place] tel:[phone] [facility] at [address] [facility] follow up on lab test(s) (chief complaint)toe nail fungus (chief complaint) Onychomycosis Weight loss, non-intention al 7 No Information OFFICE/OUTPA TIENT VISIT, [facility], [address], [place], [place], [id number], [place] tel:[phone] [facility] at [address] [facility] Toe Fungus (chief complaint) High risk medication useAcute right ankle painOnychomyc osis 7 No Information OFFICE/OUTPA TIENT VISIT, [facility], [address], [place], [place], [address], [place] tel:[phone] [facility] Musculoskelet al pain (chief complaint) Acute right ankle painAcute pain of right knee 7 No Information OFFICE/OUTPA TIENT VISIT, [facility], [address], [place], [place], [id number], [place] tel:[phone] [facility] sore throat (chief complaint) No Information 3 No Information OFFICE/OUTPA TIENT VISIT, [facility], [address], [place], [place], [id number], [place] tel:[phone] [facility] cold symptoms (chief complaint) No Information 3 No Information Family History Family Member Type Diagnosis Age At Onset No Information Payers Payer name Insurance type Covered green party ID Alejandro guthrie(s) [employer] Medicaid [id number] Social History Type Description Quantity Date Captured Comments Sex Female Smoking Status No Information Chief Complaint And Reason For Visit No Information Reason For Referral Reason For Referral No Information Plan Of Treatment Date Type Action Status Goal Td vaccine. Due on 18 due Goal FOBT. Due on due Goal Influenza vaccine. Due on due Goal Mammogram. Due on 8 due Goal Lipid panel. Due on 022 due Goal Pap/HPV testing. Due on due Goal Colonoscopy. Due on 018 due Goal HIV Routine Screening due Goal Depression screening. Due on due Goal Dental exam. Due on 018 due Goal Tdap. Due on due Goal Zoster vaccine (1st). Due on due Goal Colonoscopy. Due on due Goal Mammogram. Due on due Goal Influenza vaccine. Due on due Goal Td vaccine. Due on due Goal FOBT. Due on due Goal Pap/HPV testing. Due on due Goal Tobacco cessation counseling completed Goal Colonoscopy. Due on due Goal Mammogram. Due on due Goal Influenza vaccine. Due on due Goal Td vaccine. Due on due Goal FOBT. Due on due Goal Pap/HPV testing. Due on due Goal Mammogram. Due on due Goal Td vaccine. Due on due Goal Pap/HPV testing. Due on due Goal Colonoscopy. Due on due Goal FOBT. Due on due Goal Influenza vaccine. Due on due Goal Influenza vaccine. Due on due Goal Pap/HPV testing. Due on due Goal Lipid panel. Due on due Goal Td vaccine. Due on due Goal Mammogram. Due on due Goal Colonoscopy. Due on due Goal FOBT. Due on due Goal Sigmoidoscopy. Due on due Referral Referred To: Physical Therapy Ordered: Referrals: Physical Therapy. Evaluate and treat Appointment date/timeframe: 11/13/2016 ordered Referral Ordered: X-RAY EXAM OF LOWER SPINE- 2 OR 3 VIEWS ordered Referral Ordered: X-ray of knee, AP, lateral, and sunrise views Right ordered Referral Ordered: CHEST PA AND LATERAL ordered Referral Ordered: X-RAY EXAM OF KNEE/PATELLA-3 VIEWS Right knee ordered Referral Ordered: X-RAY EXAM OF ANKLE-COMPLETE, MIN OF 3 VIEWS Right ankle ordered History Of Present Illness Encounter Date Complaint History Of Prese nt Illness follow up on lab test(s) The sym ptoms began 12 days ago and generally lasts 1 Day. Labs drawn 10/17/16K+ 3.8 (IMPROVED)Vitamin D 13MG 2.0BG 174LABS OF NOTE 09/25/16BG 309McP8J 6.6CA 10.5 musculoskeletal pain Onset: 2 mo nths ago. Duration: more than 1 hour. Location: right knee (patella). The pain is numb. Context: there is no injury. The pain is aggravated by climbing stairs and movement. There are no relieving factors. Associated symptoms include crepitus, joint tenderness, numbness and swelling. Pertinent negatives include bruising, decreased mobility, difficulty initiating sleep, joint instability, limping, locking, nocturnal awakening, nocturnal pain, popping, spasms, tingling in the legs and weakness. Additional information: X-Ray indicates bone spurs andpatellar/quad tendon laxity r/t hyper-extension. ER Follow Up Treated & releas ed from [facility] ER 10/15/16 for right knee pain. Vascular duplex right leg negative. Labs WNL except 135BG, 3.2K+. DC report indicates elevated BP but VS are not included i report. Pt was sent home w/instructions to continue ibuprofen and use of RAVIN. Reports her knee remains painful but has less swelling. she presents today for F/U and notes she has Dermatology appt immediately following this appt. toenail fungus The symptoms beg an 2 years ago. Topical medications have been sent to her pharmacy. follow up on lab test(s) The sym ptoms began 16 days ago. Pt has scheduled an appointment to review her recent lab results. Her vital signs indicate a 7 pound weight loss since last visit 09/25/16. She denies fatigue, fever or cough, but states she feels 'sick all the time , however she is unable to specify. When asked, pt admits to not having enough food the last 2 months. . She was fired and cannot collect unemployment, has no assistance. Toe Fungus Reports 5 year H x toenail fungus which she believes have caused her to have trouble walking, tight ankles (especially right), and dry skin on both feet. Sx have increased in the last 3 weeks.I note she was seen at [facility] 08/29/16 for right ankle injury after a fall. Musculoskeletal pain Onset: 1 we ek ago. It occurs constantly and is worsening. Location: right ankle (lateral). The pain is dull and throbbing. Context: there is an injury. The pain is aggravated by movement, walking and standing. The pain is relieved by elevation, ice and pain/RX meds. Associated symptoms include bruising, crepitus, joint instability, joint tenderness, numbness, swelling and weakness. Pertinent negatives include locking and popping. Functional Status Date Functional Assessmen t No Information Instructions Date Instruction Additional Infor mation Elevated BG is consi stent with HgA1C of 6.6. Next wisit will obtain FSBG and procede from there. Related to Blood glucose elevated Potassium is improve d. Now normal, but low normal. Eat a banana daily and 3 potatos a week. Related to Hypokalemia BP 137/77 today. sto p smoking and you will not need medications for this. 1 800 Quit Now Related to Elevated blood pressure reading Continue with medications as dir ected. Related to Onychomycosis Feels her knee cause s her imbalance. will refer to PT for balance strengthening r/t knee pain and arthritis. Related to Balance problems X-Rays indicates bon e spurs. will consult with DO to determine potential for injections. May wrap with RAVIN for comfort if desired. Related to Acute pain of right knee BP elevated in ER an d again in clinic today. Pt has quit smoking today and declines to consider antihypertensives for now. I have referred her to [employer] [facility] line which she states she has used previoiusly. She will f/u in 2 weeks for BP evaluation and EKG. she agrees to schedule a Preventative Exam later this year. Related to Elevated blood pressure reading Continue with RAVIN wr ap and Ibuprofen. X-Ray of knee ordered today. After evaluation of radiology report will consult with Dr. Bolaños for possible injection. F/U 2 weeks, sooner if symptoms are worse or new symptoms arise. Related to Acute pain of right knee Increase foods high in potassium (bananas, potatos are good sources). Labs draw today to re-evaluate electrolytes. Related to Hypokalemia Pt's labs on file fr om last OV are unremarkable except for minimal elevations BG and HgA1c. Additional labs and CXR ordered today. Pt again encouraged to stop smoking. Food bank and emergency assistance information provided today. pt to RTC 2 weeks, than 1 month for F/U weigh ins and confirmation that she has received food assistance. Related to Weight loss, non-intentional Efinaconazole prescr ibed and sent to pharmacy. Detailed instructions on use, duration of treatment (48 weeks) and possible outcomes provided to pt who verbalizes understanding. Related to Onychomycosis Next visit (1-2 week s) will collect sample for MALIKA and treat as appropriate. Related to Onychomycosis RAVIN wrop with pt rep orted pain decrease. COntinue with Ibuprofen as previously directed. take with meal and full glass of water. Elevate ankles when you can. it may take a week or two before for pain to diminish. F/U next week. Related to Acute right ankle pain CBC CMP today pre-medication. Re lated to High risk medication use -rx ihbuprofen.-Work note provided.-Xrays ordered.-RICE explained and ravin bandage given. -Take frequent breaks at work and rest ankle. Related to Acute right ankle pain -rx ibuprofen.-xrays (will call with results when I get them).-Wear knee brace and take frequent breaks of knee. Related to Acute pain of right knee Assessments Type Assessment Date No Information Patient Care Teams Name Effective Dates (start - stop) Status Members No Information
[2024-07-16 19:33] LABS: Alanine Aminotransferase 30 U/L (6-35); Albumin Level 4.2 g/dL (3.5-5.1); Alkaline Phosphatase 91 U/L (38-126); Anion Gap 7 mmol/L (4-12); Aspartate Amino Transferase 40 U/L (14-36); Bilirubin,Total 0.4 mg/dL (0.2-1.3); Blood Urea Nitrogen 11 mg/dL (7-17); Calcium 9.6 mg/dL (8.4-10.2); Carbon Dioxide 33 mmol/L (22-30); Chloride 102 mmol/L (98-107); Estimated Glomerular Filt Rate > 60; Glucose 84 mg/dL (65-110); Sodium 142 mmol/L (137-145)
== END 2024-07-16 10:21 | disposition home or self-care (01) ==
LOC: ANHGOSHLAB 10:21
PROVIDERS: PCP Family Medicine; Visit Provider Family Medicine
DX: E11.8 Type 2 diabetes mellitus with unspecified complications (principal); I10 Essential (primary) hypertension
CPT/HCPCS: 36415; 80053

== ENCOUNTER 2025-01-08 15:28 | Outpatient (CLI) | payer OTHER, SELFPAY ==
--- NOTE | ~2025-01-08 | MM_ITS ---
EXAMINATION: MM screening nicki BI w wily HISTORY: Screening TECHNIQUE: Craniocaudal and mediolateral oblique 3-D tomosynthesis images were obtained and synthetic 2-D images were generated. CAD analysis was submitted and interpreted. COMPARISON: Comparison to multiple prior studies sequentially, with oldest reviewed study dated , 07/22/2023 through 06/05/2017 BREAST PARENCHYMAL COMPOSITION: There are scattered areas of fibroglandular density. FINDINGS: There is no evidence of suspicious mass, calcification, or architectural distortion to suggest malignancy in either breast. IMPRESSION: 1. No mammographic evidence of malignancy. 2. Recommend routine screening mammography in one year. BI-RADS Category 1: Negative Reviewed, dictated and finalized at location B.
== END 2025-01-08 15:29 | disposition home or self-care (01) ==
LOC: MICIMG 15:29
PROVIDERS: PCP Family Medicine; Visit Provider Family Medicine
DX: Z12.31 Encounter for screening mammogram for malignant neoplasm of breast (principal)
CPT/HCPCS: 77063; 77067

== ENCOUNTER 2025-01-15 14:47 | Outpatient (CLI) | payer OTHER, SELFPAY ==
[2025-01-15 19:19] LABS: Alanine Aminotransferase 27 U/L (6-35); Albumin Level 4.2 g/dL (3.5-5.1); Alkaline Phosphatase 84 U/L (38-126); Anion Gap 7 mmol/L (4-12); Aspartate Amino Transferase 40 U/L (14-36); Bilirubin,Total 0.4 mg/dL (0.2-1.3); Blood Urea Nitrogen 19 mg/dL (7-17); Calcium 9.8 mg/dL (8.4-10.2); Carbon Dioxide 31 mmol/L (22-30); Chloride 103 mmol/L (98-107); Cholesterol 162 mg/dL (0-200); Estimated Glomerular Filt Rate > 60; Glucose 76 mg/dL (65-110); HDL Direct 43 mg/dL; Potassium 3.9 mmol/L (3.4-5.0); Sodium 141 mmol/L (137-145); Total Protein 7.6 g/dL (6.3-8.2); Triglycerides 61 mg/dL (<150)
[2025-01-15 19:41] LABS: Hematocrit 41.6 % (37.0-47.0); Hemoglobin 12.8 g/dL (12.0-15.0); Immature Granulocyte Percent A 0.2 % (0-0.5); Lymphocytes Absolute Auto 1.75 K/mm3 (0.9-3.2); Mean Corpuscular HGB Conc 30.8 g/dl (32-36); Mean Corpuscular Hemoglobin 26.6 pg (26-34); Mean Corpuscular Volume 86.3 fl (80-100); Nucleated Red Blood Cells Absolute Auto 0.000 K/mm3 (0.0-0.012); Nucleated Red Blood Cells Perc 0.0 % (0.0-0.2); Platelet Count Result 263 k/mm3 (150-375); Red Blood Count 4.82 M/mm3 (4.2-5.4); White Blood Count 5.7 K/mm3 (4.5-10.0)
[2025-01-15 19:55] LABS: Thyroid Stimulating Hormone 1.360 uIU/mL (0.465-4.680)
[2025-01-15 20:03] LABS: MALB Creatinine Ratio < 7.6 mg/g (0-30)
[2025-01-15 20:14] LABS: Vitamin B12 682.0 pg/mL (239-931)
== END 2025-01-15 14:48 | disposition home or self-care (01) ==
LOC: ANHGOSHLAB 14:48
PROVIDERS: PCP Nurse Practitioner Family; Visit Provider Internal Medicine Endocrinology, Diabetes & Metabolism
DX: E11.8 Type 2 diabetes mellitus with unspecified complications (principal); R79.89 Other specified abnormal findings of blood chemistry; E78.5 Hyperlipidemia, unspecified; M85.80 Other specified disorders of bone density and structure, unspecified site; I10 Essential (primary) hypertension
CPT/HCPCS: 36415; 80053; 80061; 82043; 82306; 82607; 84443; 85025